=== PATIENT | male | born 1970 | race Caucasian/White ===

== ENCOUNTER 2019-02-18 22:33 | Inpatient (IN) | payer BC, MEDICAID ==
[2019-02-18] MEDS ORDERED: Aspirin 81 MG Tab.Chew PO ONE (22:40)
[2019-02-18] MEDS ORDERED: Sodium Chloride 0.9% 10 ML Syringe FLUSH PRN (22:41)
[2019-02-18] MEDS ORDERED: Lactated Ringers 1,000 ML IV ONE ×2 (22:45→23:42)
[2019-02-18] MEDS ORDERED: Acetaminophen 500 MG Tab PO ONE (22:46)
--- NOTE | 2019-02-18 22:54 | EDM.PDOC ---
ED HPI GENERAL MEDICAL PROBLEM - General Chief Complaint: Chest Pain Stated Complaint: SOB CHEST PAINS Time Seen by Provider: 02/18/19 22:35 Source of Information: Reports: Patient, Old Records, RN History Limitations: Reports: No Limitations - History of Present Illness INITIAL COMMENTS - FREE TEXT/NARRATIVE: 48 yo male developed mild chest pain about 4-5 hrs ago that has progressed. He decided to come to the ER when he developed chills. He no longer has the chills. Has not taken anything for his temp. He denies SCHULER, sore throat, cough, dysuria, or skin rash. Has chronic abdominal pain. Onset: Today Onset Date: 02/18/19 Onset Time: 17:30 Duration: Hour(s):, Getting Worse Location: Reports: Chest Quality: Reports: Ache Severity: Moderate Improves with: Reports: None Worsens with: Reports: Other (time) Context: Reports: Other (see HPI) Associated Symptoms: Reports: Chest Pain, Fever/Chills. 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) (none) chest pain Pain Score (Numeric/FACES): 7 - Related Data Allergies Allergy/AdvReac Type Severity Reaction Status Date / Time pantoprazole [From Protonix] Allergy Nausea and Verified 02/18/19 22:44 Vomiting Sea Food Allergy Anaphylactic Uncoded 02/18/19 22:44 Shock Home Meds: Home Meds Albuterol [Proventil Neb Soln] 2.5 dose INH Q4HR PRN 07/31/16 [History] Diphenoxylate HCl/Atropine [Diphenoxylate-Atrop 2.5-0.025] 1 each PO Q8H PRN 03/09 [History] Enalapril [Vasotec] 5 mg PO DAILY 07/31/16 [History] Lansoprazole [Prevacid] 30 mg PO DAILY 07/31/16 [History] Ondansetron [Zofran] 4 mg PO Q8H PRN 07/31/16 [History] Testosterone Enanthate 200 mg IM DAILY 07/31/16 [History] Warfarin [Coumadin] 9 mg PO DAILY 07/31/16 [History] busPIRone [Buspar] 5 mg PO TID 07/31/16 [History] Past Medical History Cardiovascular History: Reports: Hypertension Respiratory History: Reports: Asthma, Other (See Below) Other Respiratory History: mild asthma Gastrointestinal History: Reports: GI Bleed Musculoskeletal History: Reports: Fracture, Other (See Below) Other Musculoskeletal History: ankle Hematologic History: Reports: Anticoagulation Therapy, Blood Transfusion(s), Other (See Below) Other Hematologic History: Factor Five liden - Infectious Disease History Infectious Disease History: Reports: Chicken Pox - Past Surgical History GI Surgical History: Reports: Colostomy, Other (See Below) Social & Family History - Caffeine Use Caffeine Use: Reports: Soda ED ROS GENERAL - Review of Systems Review Of Systems: See Below Constitutional: Reports: Fever, Chills HEENT: Reports: No Symptoms Respiratory: Reports: No Symptoms Cardiovascular: Reports: Chest Pain Endocrine: Reports: No Symptoms GI/Abdominal: Reports: No Symptoms : Reports: No Symptoms Musculoskeletal: Reports: No Symptoms Skin: Reports: No Symptoms Neurological: Reports: No Symptoms Psychiatric: Reports: No Symptoms ED EXAM, GENERAL - Physical Exam Exam: See Below Exam Limited By: No Limitations General Appearance: Alert, WD/WN, Mild Distress, Obese Eye Exam: Bilateral Eye: Normal Inspection Ears: Normal External Exam, Normal Canal, Hearing Grossly Normal, Normal TMs Ear Exam: Bilateral Ear: Auricle Normal, Canal Normal, TM normal Nose: Normal Inspection, No Blood Throat/Mouth: Normal Inspection, Normal Lips, Normal Oropharynx, Normal Voice, No Airway Compromise Head: Atraumatic, Normocephalic Neck: Normal Inspection, Supple, Non-Tender. No: Lymphadenopathy (R), Lymphadenopathy (L) Respiratory/Chest: No Respiratory Distress, Lungs Clear, Normal Breath Sounds, No Accessory Muscle Use Cardiovascular: Regular Rate, Rhythm, No Edema GI/Abdominal: Normal Bowel Sounds, Soft, No Distention, Tender (diffusely, surgical scars present). No: Non-Tender, Distended, Guarding, Rigid, Rebound Extremities: Normal Inspection, Normal Range of Motion, Non-Tender, No Pedal Edema Neurological: Alert, Oriented, CN II-XII Intact, Normal Cognition, No Motor/ Sensory Deficits Psychiatric: Normal Affect, Normal Mood Skin Exam: Warm, Dry, Intact, No Rash, Erythema (of some of the skin of the upper abdomen. Warm to touch.) EKG INTERPRETATION EKG Date: 02/18/19 Time: 22:35 Rhythm: NSR Rate (Beats/Min): 129 [place]: Normal P-Wave: Present QRS: Normal ST-T: Normal QT: Normal Comparison: NA - No Prior EKG Course - Vital Signs Text/Narrative:: Dr. Paul called @ [id number] Last Recorded V/S: Last Vital Signs Temp 38.9 C H 02/18/19 23:07 Pulse 110 H 02/18/19 23:07 Resp 23 H 02/18/19 23:07 BP 138/70 02/18/19 23:07 Pulse Ox 98 02/18/19 23:07 - Orders/Labs/Meds Orders: Active Orders 24 hr Category Date Time Status Bladder Scan [RC] ASDIRECTED Care 02/18/19 23:28 Active Cardiac Monitoring [RC] .As Directed Care 02/18/19 22:35 Active EKG Documentation Completion [RC] ASDIRECTED Care 02/18/19 22:35 Active CULTURE BLOOD [BC] Stat Lab 02/18/19 22:55 Received CULTURE BLOOD [BC] Stat Lab 02/18/19 23:00 Received UA W/MICROSCOPIC [URIN] Stat Lab 02/18/19 23:45 Ordered Lactated Ringers [Ringers, Lactated] 1,000 ml Med 02/18/19 23:42 Active IV BOLUS Sodium Chloride 0.9% [Saline Flush] Med 02/18/19 22:41 Active 10 ml FLUSH ASDIRECTED PRN Vancomycin 1.25 gm Med 02/18/19 23:48 Active Sodium Chloride 0.9% [Normal Saline] 250 ml IV NOW Saline Lock Insert [OM.PC] Routine Oth 02/18/19 22:41 Ordered EKG 12 Lead [EK] Routine Ther 02/18/19 22:34 Ordered Medication Orders Lactated Ringer's (Ringers, Lactated) 1,000 mls @ 1,000 mls/hr IV BOLUS ONE Stop: 02/19/19 00:41 Vancomycin HCl 1.25 gm/ Sodium (Chloride) 250 mls @ 150 mls/hr IV NOW STA Stop: 02/19/19 01:27 Sodium Chloride (Saline Flush) 10 ml FLUSH ASDIRECTED PRN PRN Reason: Keep Vein Open Last Admin: 02/18/19 23:06 Dose: 10 ml Labs: Laboratory Tests 02/18/19 02/18/19 02/18/19 Range/Units 22:45 22:45 22:45 WBC 15.7 H (4.5-11.0) K/uL RBC 5.61 (4.30-5.90) M/uL Hgb 16.6 H (12.0-15.0) g/dL Hct 51.0 (40.0-54.0) % MCV 91 (80-98) fL MCH 30 (27-31) pg MCHC 33 (32-36) % Plt Count 229 (150-400) K/uL PT 23.8 H (9.5-12.0) sec INR 2.31 H (0.80-1.20) Sodium 138 L (140-148) mmol/L Potassium 3.7 (3.6-5.2) mmol/L Chloride 100 (100-108) mmol/L Carbon Dioxide 25 (21-32) mmol/L Anion Gap 16.7 H (5.0-14.0) mmol/L BUN 10 (7-18) mg/dL Creatinine 1.1 (0.8-1.3) mg/dL Est Cr Clr Drug Dosing 91.80 mL/min Estimated GFR (MDRD) > 60 (>60) Glucose 127 H (74-106) mg/dL Lactic Acid (0.4-2.0) mmol/L Calcium 9.8 (8.5-10.1) mg/dL Troponin I < 0.017 (0.000-0.056) ng/mL 02/18/19 Range/Units 22:55 WBC (4.5-11.0) K/uL RBC (4.30-5.90) M/uL Hgb (12.0-15.0) g/dL Hct (40.0-54.0) % MCV (80-98) fL MCH (27-31) pg MCHC (32-36) % Plt Count (150-400) K/uL PT (9.5-12.0) sec INR (0.80-1.20) Sodium (140-148) mmol/L Potassium (3.6-5.2) mmol/L Chloride (100-108) mmol/L Carbon Dioxide (21-32) mmol/L Anion Gap (5.0-14.0) mmol/L BUN (7-18) mg/dL Creatinine (0.8-1.3) mg/dL Est Cr Clr Drug Dosing mL/min Estimated GFR (MDRD) (>60) Glucose (74-106) mg/dL Lactic Acid 3.5 H (0.4-2.0) mmol/L Calcium (8.5-10.1) mg/dL Troponin I (0.000-0.056) ng/mL Meds: Medications Generic Name Dose Route Start Last Admin Trade Name Freq PRN Reason Stop Dose Admin Lactated Ringer's 1,000 mls @ 1,000 mls/hr 02/18/19 23:42 Ringers, Lactated IV 02/19/19 00:41 BOLUS ONE Vancomycin HCl 1.25 gm/ Sodium 250 mls @ 150 mls/hr 02/18/19 23:48 Chloride IV 02/19/19 01:27 NOW STA Sodium Chloride 10 ml 02/18/19 22:41 02/18/19 23:06 Saline Flush FLUSH 10 ml ASDIRECTED PRN Administration Keep Vein Open Discontinued Medications Generic Name Dose Route Start Last Admin Trade Name Freq PRN Reason Stop Dose Admin Acetaminophen 1,000 mg 02/18/19 22:46 02/18/19 22:56 Tylenol Extra Strength PO 02/18/19 22:47 1,000 mg ONETIME ONE Administration Aspirin 324 mg 02/18/19 22:40 02/18/19 22:55 Aspirin PO 02/18/19 22:41 324 mg ONETIME ONE Administration Lactated Ringer's 1,000 mls @ 1,000 mls/hr 02/18/19 22:45 02/18/19 23:06 Ringers, Lactated IV 02/18/19 23:44 1,000 mls/hr BOLUS ONE Administration - Radiology Interpretation Free Text/Narrative:: CXR-neg Departure - Departure Time of Disposition: 00:00 Disposition: Admitted As Inpatient 65 Clinical Impression: Cellulitis of abdominal wall Sepsis Qualifiers: Sepsis type: sepsis due to unspecified organism Qualified Code(s): A41.9 - Sepsis, unspecified organism Referrals: PCP,None [Primary Care Provider] - Forms: ED Department Discharge - My Orders Last 24 Hours: My Active Orders 02/18/19 22:34 EKG 12 Lead [EK] Routine 02/18/19 22:35 Cardiac Monitoring [RC] .As Directed EKG Documentation Completion [RC] ASDIRECTED 02/18/19 22:41 Sodium Chloride 0.9% [Saline Flush] 10 ml FLUSH ASDIRECTED PRN Saline Lock Insert [OM.PC] Routine 02/18/19 22:55 CULTURE BLOOD [BC] Stat 02/18/19 23:00 CULTURE BLOOD [BC] Stat 02/18/19 23:28 Bladder Scan [RC] ASDIRECTED 02/18/19 23:42 Lactated Ringers [Ringers, Lactated] 1,000 ml IV BOLUS 02/18/19 23:45 UA W/MICROSCOPIC [URIN] Stat 02/18/19 23:48 Vancomycin 1.25 gm Sodium Chloride 0.9% [Normal Saline] 250 ml IV NOW - Assessment/Plan Last 24 Hours: My Active Orders 02/18/19 22:34 EKG 12 Lead [EK] Routine 02/18/19 22:35 Cardiac Monitoring [RC] .As Directed EKG Documentation Completion [RC] ASDIRECTED 02/18/19 22:41 Sodium Chloride 0.9% [Saline Flush] 10 ml FLUSH ASDIRECTED PRN Saline Lock Insert [OM.PC] Routine 02/18/19 22:55 CULTURE BLOOD [BC] Stat 02/18/19 23:00 CULTURE BLOOD [BC] Stat 02/18/19 23:28 Bladder Scan [RC] ASDIRECTED 02/18/19 23:42 Lactated Ringers [Ringers, Lactated] 1,000 ml IV BOLUS 02/18/19 23:45 UA W/MICROSCOPIC [URIN] Stat 02/18/19 23:48 Vancomycin 1.25 gm Sodium Chloride 0.9% [Normal Saline] 250 ml IV NOW
--- NOTE | 2019-02-18 23:28 | CRLCR ---
INDICATION: Chest pain fever TECHNIQUE: Chest radiograph 1 view COMPARISON: None FINDINGS: Moderate degradation of image quality noted due to body habitus. Mediastinum: The mediastinum is normal in appearance. The heart silhouette is normal in size and morphology. Lung: Both lungs are unremarkable in appearance. No sign of pleural effusion seen. No pneumothorax is identified. IMPRESSION: 1. No acute cardiopulmonary disease is seen. Dictated by: Patricio Enriquez MD @ 02/18/2019 23:26:35 (Electronically Signed)
[2019-02-19] MEDS ORDERED: Ondansetron 4 MG/2 ML SDV IV PRN (00:29)
[2019-02-19] MEDS ORDERED: Albuterol 0.083% 2.5 MG/3 ML Neb Soln NEB PRN (00:29)
--- NOTE | 2019-02-19 00:29 | PCM.HP ---
H&P History of Present Illness - General Date of Service: 02/19/19 Admit Problem/Dx: 48-year-old male with past medical history of testosterone deficiency, factor V Leiden deficiency on, Coumadin, came to the ED with a complaining of epigastric chest pain started since last 6 hours which is gradually progressing. Patient had 2 episodes of vomiting associated with fever and chills. Patient denies any exertional chest pain. Patient denies any previous history of CAD. In the ED patient lab results showed a WBC count is elevated and the lactic acid is 3.5. Patient has maculopapular skin rash present on the anterior surface of the abdominal wall. Patient was diagnosed with sepsis and received vancomycin medication. Patient is a full code. Other review of systems are not significant. chest pain Pain Score (Numeric/FACES): 7 Abdominal Pain Score (Numeric/FACES): 6 - Related Data Allergies/Adverse Reactions: Allergies Allergy/AdvReac Type Severity Reaction Status Date / Time pantoprazole [From Protonix] Allergy Nausea and Verified 02/18/19 22:44 Vomiting Sea Food Allergy Severe Anaphylactic Uncoded 02/19/19 08:43 Shock Home Medications: Home Meds Albuterol [Proventil Neb Soln] 2.5 dose INH Q4HR PRN 07/31/16 [History] Diphenoxylate HCl/Atropine [Diphenoxylate-Atrop 2.5-0.025] 1 each PO Q8H PRN 03/09 [History] Enalapril [Vasotec] 5 mg PO DAILY 07/31/16 [History] Lansoprazole [Prevacid] 30 mg PO DAILY 07/31/16 [History] Ondansetron [Zofran] 4 mg PO Q8H PRN 07/31/16 [History] Testosterone Enanthate 200 mg IM DAILY 07/31/16 [History] Warfarin [Coumadin] 8 mg PO DAILY 07/31/16 [History] busPIRone [Buspar] 5 mg PO TID 07/31/16 [History] Dicyclomine HCl [Bentyl] 10 mg PO TID PRN 02/19/19 [History] Sertraline HCl 50 mg PO DAILY 02/19/19 [History] Past Medical History HEENT History: Reports: Hard of Hearing, Impaired Vision Cardiovascular History: Reports: Hypertension Respiratory History: Reports: Asthma, Other (See Below) Other Respiratory History: mild asthma Gastrointestinal History: Reports: GI Bleed Musculoskeletal History: Reports: Fracture, Other (See Below) Other Musculoskeletal History: ankle Psychiatric History: Reports: Anxiety, Depression Hematologic History: Reports: Anticoagulation Therapy, Blood Transfusion(s), Other (See Below) Other Hematologic History: Factor Five liden - Infectious Disease History Infectious Disease History: Reports: Chicken Pox - Past Surgical History GI Surgical History: Reports: Colostomy, Other (See Below) Social & Family History - Family History Family Medical History: Noncontributory - Tobacco Use Smoking Status *Q: Never Smoker - Caffeine Use Caffeine Use: Reports: Soda - Recreational Drug Use Recreational Drug Use: No H&P Review of Systems - Review of Systems: Review Of Systems: See Below General: Reports: Fever, Chills, Malaise, Weakness, Fatigue, Night Sweats, Diaphoresis, Decreased Appetite. Denies: Weight Loss, Weight Gain HEENT: Denies: Contact Lenses, Dysphasia Pulmonary: Reports: Shortness of Breath. Denies: Wheezing, Pleuritic Chest Pain , Cough, Sputum Cardiovascular: Reports: Chest Pain. Denies: Palpitations, Dyspnea on Exertion , Orthopnea, PND, Edema, Lightheadedness, Syncope, Claudication Gastrointestinal: Reports: Abdominal Pain, Anorexia. Denies: Black Stool, Bloody Stool, Constipation, Diarrhea Genitourinary: Denies: Dysuria, Frequency Musculoskeletal: Denies: Neck Pain, Shoulder Pain Skin: Denies: Cyanosis, Jaundice Psychiatric: Denies: Confusion, Depression Neurological: Denies: Confusion, Dizziness Hematologic/Lymphatic: Denies: Anemia, Easy Bleeding Exam - Exam Exam: See Below - Vital Signs Vital Signs: Last Vital Signs Temp 38.9 C H 02/18/19 23:07 Pulse 110 H 02/18/19 23:07 Resp 23 H 02/18/19 23:07 BP 138/70 02/18/19 23:07 Pulse Ox 98 02/18/19 23:07 Weight: 129.727 kg - Exam General: Alert, Oriented Neck: Supple, Trachea Midline Lungs: Clear to Auscultation, Normal Respiratory Effort Cardiovascular: Regular Rate, Regular Rhythm GI/Abdominal Exam: Normal Bowel Sounds, Soft, Non-Tender, No Organomegaly, No Distention, No Abnormal Bruit, No Mass, Other (Patient has maculopapular skin rash on anterior surface of the abdominal wall, tenderness is positive) Extremities: Normal Inspection, Normal Range of Motion, Non-Tender, No Pedal Edema - Patient Data Lab Results Last 24 hrs: Laboratory Results - last 24 hr 02/18/19 02/18/19 02/18/19 Range/Units 22:45 22:45 22:45 WBC 15.7 H (4.5-11.0) K/uL RBC 5.61 (4.30-5.90) M/uL Hgb 16.6 H (12.0-15.0) g/dL Hct 51.0 (40.0-54.0) % MCV 91 (80-98) fL MCH 30 (27-31) pg MCHC 33 (32-36) % Plt Count 229 (150-400) K/uL PT 23.8 H (9.5-12.0) sec INR 2.31 H (0.80-1.20) Sodium 138 L (140-148) mmol/L Potassium 3.7 (3.6-5.2) mmol/L Chloride 100 (100-108) mmol/L Carbon Dioxide 25 (21-32) mmol/L Anion Gap 16.7 H (5.0-14.0) mmol/L BUN 10 (7-18) mg/dL Creatinine 1.1 (0.8-1.3) mg/dL Est Cr Clr Drug Dosing 91.80 mL/min Estimated GFR (MDRD) > 60 (>60) Glucose 127 H (74-106) mg/dL Lactic Acid (0.4-2.0) mmol/L Calcium 9.8 (8.5-10.1) mg/dL Troponin I < 0.017 (0.000-0.056) ng/mL Urine Color Urine Appearance Urine pH (4.5-8.0) Ur Specific [place] (1.008-1.030) Urine Protein (NEGATIVE) mg/dL Urine Glucose (UA) (NEGATIVE) mg/dL Urine Ketones (NEGATIVE) mg/dL Urine Occult Blood (NEGATIVE) Urine Nitrite (NEGAITVE) Urine Bilirubin (NEGATIVE) Urine Urobilinogen (NORMAL) mg/dL Ur Leukocyte Esterase (NEGATIVE) Urine RBC (0-5) Urine WBC (0-5) Ur Epithelial Cells Amorphous Sediment Urine Bacteria Urine Mucus 02/18/19 02/18/19 Range/Units 22:55 23:45 WBC (4.5-11.0) K/uL RBC (4.30-5.90) M/uL Hgb (12.0-15.0) g/dL Hct (40.0-54.0) % MCV (80-98) fL MCH (27-31) pg MCHC (32-36) % Plt Count (150-400) K/uL PT (9.5-12.0) sec INR (0.80-1.20) Sodium (140-148) mmol/L Potassium (3.6-5.2) mmol/L Chloride (100-108) mmol/L Carbon Dioxide (21-32) mmol/L Anion Gap (5.0-14.0) mmol/L BUN (7-18) mg/dL Creatinine (0.8-1.3) mg/dL Est Cr Clr Drug Dosing mL/min Estimated GFR (MDRD) (>60) Glucose (74-106) mg/dL Lactic Acid 3.5 H (0.4-2.0) mmol/L Calcium (8.5-10.1) mg/dL Troponin I (0.000-0.056) ng/mL Urine Color Yellow Urine Appearance Slightly cloudy Urine pH 8.0 (4.5-8.0) Ur Specific [place] 1.005 L (1.008-1.030) Urine Protein Negative (NEGATIVE) mg/dL Urine Glucose (UA) Normal (NEGATIVE) mg/dL Urine Ketones Negative (NEGATIVE) mg/dL Urine Occult Blood Negative (NEGATIVE) Urine Nitrite Negative (NEGAITVE) Urine Bilirubin Negative (NEGATIVE) Urine Urobilinogen Normal (NORMAL) mg/dL Ur Leukocyte Esterase Negative (NEGATIVE) Urine RBC 0-5 (0-5) Urine WBC 0-5 (0-5) Ur Epithelial Cells Few Amorphous Sediment Few Urine Bacteria Few Urine Mucus Not seen Result Diagrams: 02/19/19 05:05 02/19/19 05:05 - Problem List (1) Factor V deficiency SNOMED Code(s): 0674966 ICD Code: D68.2 - HEREDITARY DEFICIENCY OF OTHER CLOTTING FACTORS Status: Acute Current Visit: Yes (2) Cellulitis of abdominal wall SNOMED Code(s): 90446621 ICD Code: L03.311 - CELLULITIS OF ABDOMINAL WALL Status: Acute Current Visit: Yes (3) Sepsis SNOMED Code(s): 07319775 ICD Code: A41.9 - SEPSIS, UNSPECIFIED ORGANISM Status: Acute Current Visit: Yes Qualifiers: Sepsis type: sepsis due to unspecified organism Qualified Code(s): A41.9 - Sepsis, unspecified organism (4) Crushing injury of finger of left hand SNOMED Code(s): 39219239 ICD Code: S67.22XA - CRUSHING INJURY OF LEFT HAND, INITIAL ENCOUNTER Status : Acute Current Visit: No (5) Subungual hematoma of finger SNOMED Code(s): 446072496 ICD Code: S60.10XA - CONTUSION OF UNSP FINGER WITH DAMAGE TO NAIL, INIT ENCNTR Status: Acute Current Visit: No Qualifiers: Encounter type: initial encounter Qualified Code(s): S60.10XA - Contusion of unspecified finger with damage to nail, initial encounter (6) Testosterone deficiency SNOMED Code(s): 2196871126144 ICD Code: E34.9 - ENDOCRINE DISORDER, UNSPECIFIED Status: Acute Current Visit: Yes Problem List Initiated/Reviewed/Updated: Yes Orders Last 24hrs: Active Orders 24 hr Category Date Time Status Bladder Scan [RC] ASDIRECTED Care 02/18/19 23:28 Active Cardiac Monitoring [RC] .As Directed Care 02/18/19 22:35 Active EKG Documentation Completion [RC] ASDIRECTED Care 02/18/19 22:35 Active CULTURE BLOOD [BC] Stat Lab 02/18/19 22:55 Received CULTURE BLOOD [BC] Stat Lab 02/18/19 23:00 Received Lactated Ringers [Ringers, Lactated] 1,000 ml Med 02/18/19 23:42 Active IV BOLUS Sodium Chloride 0.9% [Saline Flush] Med 02/18/19 22:41 Active 10 ml FLUSH ASDIRECTED PRN Vancomycin 1.25 gm Med 02/18/19 23:48 Active Sodium Chloride 0.9% [Normal Saline] 250 ml IV NOW Saline Lock Insert [OM.PC] Routine Oth 02/18/19 22:41 Ordered EKG 12 Lead [EK] Routine Ther 02/18/19 22:34 Ordered Medication Orders Lactated Ringer's (Ringers, Lactated) 1,000 mls @ 1,000 mls/hr IV BOLUS ONE Stop: 02/19/19 00:41 Last Admin: 02/19/19 00:09 Dose: 1,000 mls/hr Vancomycin HCl 1.25 gm/ Sodium (Chloride) 250 mls @ 150 mls/hr IV NOW STA Stop: 02/19/19 01:27 Last Admin: 02/19/19 00:10 Dose: 150 mls/hr Sodium Chloride (Saline Flush) 10 ml FLUSH ASDIRECTED PRN PRN Reason: Keep Vein Open Last Admin: 02/18/19 23:06 Dose: 10 ml Assessment/Plan Comment:: 48-year-old male with past medical history of factor V Leiden deficiency on Coumadin medication, testosterone deficiency came to the ED with a concerns of epigastric chest pain, skin rash and diagnosed with cellulitis and admitted into the hospital in observational status Patient WBC count is elevated, lactic acid is 3.5 Will add Zosyn medication along with vancomycin Ordered blood cultures Received 2 L of IV fluids bolus We will place him on normal saline 175 mL/h maintenance IV fluids CBC, CMP tomorrow We will repeat lactic acid in 4 hours Tapia catheter not indicated IV fluids 175 mL/h normal saline Diet regular diet DVT prophylaxis Coumadin, home dose Observational status
[2019-02-19] MEDS ORDERED: Acetaminophen 325 MG Tab PO PRN (00:36)
[2019-02-19] MEDS ORDERED: Sodium Chloride 0.9% 1,000 ML IV SCH (00:45)
[2019-02-19] MEDS ORDERED: Warfarin 5 MG Tab PO ONE (01:34)
[2019-02-19] MEDS: Piperacillin/Tazobactam 3.375 GM in Sodium Chloride 0.9% 50 ML IV SCH ×2 (02:04→07:56)
[2019-02-19] MEDS: Acetaminophen/HYDROcodone 325-5 MG Tab PO PRN ×2 (03:55→15:35)
[2019-02-19] MEDS ORDERED: Piperacillin/Tazobactam/Dext 3.375 GM in Premix Bag 1 BAG IV SCH (08:00)
[2019-02-19] MEDS ORDERED: DICYCLOMINE HCL 10 MG PO PRN (08:37)
[2019-02-19] MEDS ORDERED: Dicyclomine 10 MG Cap PO PRN (08:41)
[2019-02-19] MEDS ORDERED: TESTOSTERONE ENANTHATE 200 MG IM SCH (09:00)
[2019-02-19] MEDS ORDERED: SERTRALINE HCL 50 MG PO SCH (09:00)
[2019-02-19] MEDS ORDERED: BUSPIRONE 5 MG PO SCH (09:00)
[2019-02-19] MEDS ORDERED: Non-Formulary Medication 1 Each (Lansoprazole [Prevacid] 30 MG) PO SCH (09:00)
--- NOTE | 2019-02-19 10:42 | PCM.PN ---
- General Info Date of Service: 02/19/19 Subjective Update: no acute events overnight following admission. Patient was febrile on arrival but temperatures have normalized. Abdominal pain has improved with antibiotic therapy. Lactic acid level has normalized with hydration. Blood pressure remained stable in the normal range. White blood cell count is slightly better. Strength seems to be improving. Cultures are negative so far. Functional Status: Reports: Pain Controlled, Tolerating Diet - Review of Systems General: Reports: Fever Gastrointestinal: Reports: Abdominal Pain - Patient Data Vitals - Most Recent: Last Vital Signs Temp 37.9 C 02/19/19 07:00 Pulse 94 02/19/19 07:00 Resp 19 02/19/19 07:00 BP 107/56 L 02/19/19 07:00 Pulse Ox 92 L 02/19/19 07:00 Weight - Most Recent: 135 kg Lab Results Last 24 Hours: Laboratory Results - last 24 hr 02/18/19 02/18/19 02/18/19 Range/Units 22:45 22:45 22:45 WBC 15.7 H (4.5-11.0) K/uL RBC 5.61 (4.30-5.90) M/uL Hgb 16.6 H (12.0-15.0) g/dL Hct 51.0 (40.0-54.0) % MCV 91 (80-98) fL MCH 30 (27-31) pg MCHC 33 (32-36) % Plt Count 229 (150-400) K/uL Neut % (Auto) (36-66) % Lymph % (Auto) (24-44) % [place] % (Auto) (2-6) % Eos % (Auto) (2-4) % Baso % (Auto) (0-1) % PT 23.8 H (9.5-12.0) sec INR 2.31 H (0.80-1.20) Sodium 138 L (140-148) mmol/L Potassium 3.7 (3.6-5.2) mmol/L Chloride 100 (100-108) mmol/L Carbon Dioxide 25 (21-32) mmol/L Anion Gap 16.7 H (5.0-14.0) mmol/L BUN 10 (7-18) mg/dL Creatinine 1.1 (0.8-1.3) mg/dL Est Cr Clr Drug Dosing 91.80 mL/min Estimated GFR (MDRD) > 60 (>60) Glucose 127 H (74-106) mg/dL Lactic Acid (0.4-2.0) mmol/L Calcium 9.8 (8.5-10.1) mg/dL Troponin I < 0.017 (0.000-0.056) ng/mL Urine Color Urine Appearance Urine pH (4.5-8.0) Ur Specific [place] (1.008-1.030) Urine Protein (NEGATIVE) mg/dL Urine Glucose (UA) (NEGATIVE) mg/dL Urine Ketones (NEGATIVE) mg/dL Urine Occult Blood (NEGATIVE) Urine Nitrite (NEGAITVE) Urine Bilirubin (NEGATIVE) Urine Urobilinogen (NORMAL) mg/dL Ur Leukocyte Esterase (NEGATIVE) Urine RBC (0-5) Urine WBC (0-5) Ur Epithelial Cells Amorphous Sediment Urine Bacteria Urine Mucus 02/18/19 02/18/19 02/19/19 Range/Units 22:55 23:45 05:05 WBC 12.4 H (4.5-11.0) K/uL RBC 4.98 (4.30-5.90) M/uL Hgb 15.2 H (12.0-15.0) g/dL Hct 46.1 (40.0-54.0) % MCV 93 (80-98) fL MCH 31 (27-31) pg MCHC 33 (32-36) % Plt Count 165 (150-400) K/uL Neut % (Auto) 89 H (36-66) % Lymph % (Auto) 5 L (24-44) % [place] % (Auto) 6 (2-6) % Eos % (Auto) 0 L (2-4) % Baso % (Auto) 0 (0-1) % PT (9.5-12.0) sec INR (0.80-1.20) Sodium (140-148) mmol/L Potassium (3.6-5.2) mmol/L Chloride (100-108) mmol/L Carbon Dioxide (21-32) mmol/L Anion Gap (5.0-14.0) mmol/L BUN (7-18) mg/dL Creatinine (0.8-1.3) mg/dL Est Cr Clr Drug Dosing mL/min Estimated GFR (MDRD) (>60) Glucose (74-106) mg/dL Lactic Acid 3.5 H (0.4-2.0) mmol/L Calcium (8.5-10.1) mg/dL Troponin I (0.000-0.056) ng/mL Urine Color Yellow Urine Appearance Slightly cloudy Urine pH 8.0 (4.5-8.0) Ur Specific [place] 1.005 L (1.008-1.030) Urine Protein Negative (NEGATIVE) mg/dL Urine Glucose (UA) Normal (NEGATIVE) mg/dL Urine Ketones Negative (NEGATIVE) mg/dL Urine Occult Blood Negative (NEGATIVE) Urine Nitrite Negative (NEGAITVE) Urine Bilirubin Negative (NEGATIVE) Urine Urobilinogen Normal (NORMAL) mg/dL Ur Leukocyte Esterase Negative (NEGATIVE) Urine RBC 0-5 (0-5) Urine WBC 0-5 (0-5) Ur Epithelial Cells Few Amorphous Sediment Few Urine Bacteria Few Urine Mucus Not seen 02/19/19 02/19/19 02/19/19 Range/Units 05:05 05:05 05:05 WBC (4.5-11.0) K/uL RBC (4.30-5.90) M/uL Hgb (12.0-15.0) g/dL Hct (40.0-54.0) % MCV (80-98) fL MCH (27-31) pg MCHC (32-36) % Plt Count (150-400) K/uL Neut % (Auto) (36-66) % Lymph % (Auto) (24-44) % [place] % (Auto) (2-6) % Eos % (Auto) (2-4) % Baso % (Auto) (0-1) % PT 21.1 H (9.5-12.0) sec INR 2.03 H (0.80-1.20) Sodium 141 (140-148) mmol/L Potassium 4.0 (3.6-5.2) mmol/L Chloride 105 (100-108) mmol/L Carbon Dioxide 28 (21-32) mmol/L Anion Gap 8.0 (5.0-14.0) mmol/L BUN 8 (7-18) mg/dL Creatinine 1.1 (0.8-1.3) mg/dL Est Cr Clr Drug Dosing 91.80 mL/min Estimated GFR (MDRD) > 60 (>60) Glucose 99 (74-106) mg/dL Lactic Acid 1.2 (0.4-2.0) mmol/L Calcium 9.1 (8.5-10.1) mg/dL Troponin I (0.000-0.056) ng/mL Urine Color Urine Appearance Urine pH (4.5-8.0) Ur Specific [place] (1.008-1.030) Urine Protein (NEGATIVE) mg/dL Urine Glucose (UA) (NEGATIVE) mg/dL Urine Ketones (NEGATIVE) mg/dL Urine Occult Blood (NEGATIVE) Urine Nitrite (NEGAITVE) Urine Bilirubin (NEGATIVE) Urine Urobilinogen (NORMAL) mg/dL Ur Leukocyte Esterase (NEGATIVE) Urine RBC (0-5) Urine WBC (0-5) Ur Epithelial Cells Amorphous Sediment Urine Bacteria Urine Mucus Med Orders - Current: Current Medications Acetaminophen (Tylenol) 650 mg PO Q6H PRN PRN Reason: Fever Hydrocodone Bitart/Acetaminophen ([place] 325-5 Mg) 1 tab PO Q4H PRN PRN Reason: Pain (moderate 4-6) Last Admin: 02/19/19 03:55 Dose: 1 tab Albuterol (Proventil Neb Soln) 2.5 mg NEB Q4H PRN PRN Reason: Shortness Of Breath/wheezing Dicyclomine HCl (Bentyl) 10 mg PO TID PRN PRN Reason: IRRITABLE BOWEL Cefazolin Sodium/Dextrose 2 gm (/ Premix) 50 mls @ 100 mls/hr IV Q8H [facility] Sodium Chloride (Normal Saline) 1,000 mls @ 25 mls/hr IV ASDIRECTED [facility] Non-Formulary Medication (Buspirone [Buspar]) 5 mg PO TID [facility] Non-Formulary Medication (Lansoprazole [Prevacid]) 30 mg PO DAILY [facility] Non-Formulary Medication (Testosterone Enanthate [Testosterone Enanthate]) 200 mg IM DAILY [facility] Ondansetron HCl (Zofran) 4 mg IV Q4H PRN PRN Reason: Nausea/Vomiting Senna/Docusate Sodium (Senna Plus) 1 tab PO BID PRN PRN Reason: Constipation Sertraline HCl (Zoloft) 50 mg PO DAILY [facility] Sodium Chloride (Saline Flush) 10 ml FLUSH ASDIRECTED PRN PRN Reason: Keep Vein Open Last Admin: 02/18/19 23:06 Dose: 10 ml Warfarin Sodium (Coumadin) 5 mg PO DAILY@1300 [facility] Warfarin Sodium (Coumadin) 3 mg PO DAILY@1300 [facility] Discontinued Medications Acetaminophen (Tylenol Extra Strength) 1,000 mg PO ONETIME ONE Stop: 02/18/19 22:47 Last Admin: 02/18/19 22:56 Dose: 1,000 mg Aspirin (Aspirin) 324 mg PO ONETIME ONE Stop: 02/18/19 22:41 Last Admin: 02/18/19 22:55 Dose: 324 mg Lactated Ringer's (Ringers, Lactated) 1,000 mls @ 1,000 mls/hr IV BOLUS ONE Stop: 02/18/19 23:44 Last Admin: 02/18/19 23:06 Dose: 1,000 mls/hr Lactated Ringer's (Ringers, Lactated) 1,000 mls @ 1,000 mls/hr IV BOLUS ONE Stop: 02/19/19 00:41 Last Admin: 02/19/19 00:09 Dose: 1,000 mls/hr Vancomycin HCl 1.25 gm/ Sodium (Chloride) 250 mls @ 150 mls/hr IV NOW STA Stop: 02/19/19 01:27 Last Admin: 02/19/19 00:10 Dose: 150 mls/hr Sodium Chloride (Normal Saline) 1,000 mls @ 175 mls/hr IV ASDIRECTED [facility] Last Admin: 02/19/19 05:53 Dose: 175 mls/hr Piperacillin Sod/Tazobactam (Sod 3.375 gm/ Sodium Chloride) 50 mls @ 100 mls/ hr IV Q6H [facility] Last Admin: 02/19/19 07:56 Dose: Not Given Vancomycin HCl 1.5 gm/ Sodium (Chloride) 250 mls @ 150 mls/hr IV Q12H [facility] Last Admin: 02/19/19 01:36 Dose: Not Given Piperacillin/Tazobactam/ (Dextrose 3.375 gm/ Premix) 50 mls @ 100 mls/hr IV Q6H [facility] Last Admin: 02/19/19 08:47 Dose: 100 mls/hr Vancomycin HCl 1.75 gm/ Sodium (Chloride) 250 mls @ 150 mls/hr IV Q12H [facility] Warfarin Sodium (Coumadin) 5 mg PO ONETIME ONE Stop: 02/19/19 01:35 Last Admin: 02/19/19 02:04 Dose: 5 mg Warfarin Sodium (Coumadin) 3 mg PO NOW ONE Stop: 02/19/19 02:01 Last Admin: 02/19/19 02:05 Dose: 3 mg - Exam Quality Assessment: No: Supplemental Oxygen General: Alert, Oriented, Cooperative, No Acute Distress Lungs: Normal Respiratory Effort GI/Abdominal Exam: Soft, No Distention Extremities: No Pedal Edema Skin: Warm, Dry, Rash (erythema over middle of the abdomen. multiple old scars. No abscess. small abrasion upper mid abdomen ) Psy/Mental Status: Alert, Normal Affect - Problem List Review Problem List Initiated/Reviewed/Updated: Yes - My Orders Last 24 Hours: My Active Orders 02/19/19 08:41 Dicyclomine [Bentyl] 10 mg PO TID PRN 02/19/19 09:00 Lansoprazole [Prevacid] 30 mg PO DAILY Sertraline [Zoloft] 50 mg PO DAILY Testosterone Enanthate [Testosterone Enanthate] 200 mg IM DAILY busPIRone [Buspar] 5 mg PO TID 02/19/19 10:40 Up ad Ivy [RC] ASDIRECTED 02/19/19 11:00 Sodium Chloride 0.9% [Normal Saline] 1,000 ml IV ASDIRECTED 02/19/19 14:00 ceFAZolin [Ancef] 2 gm Premix Bag 1 bag IV Q8H 02/20/19 05:00 BASIC METABOLIC PANEL,BMP [CHEM] Timed CBC W/O DIFF,HEMOGRAM [HEME] Timed (1) INR,PT,PROTHROMBIN TIME [COAG] Timed - Plan Plan:: ASSESSMENT AND PLAN - Cellulitis of the abdominal wall with sepsis - sepsis has resolved with management during the emergency room visit and early part of the hospital stay. white blood cell count trending down. Cellulitis seems to be improving. Small area of abrasion on the upper abdomen likely the source for infection. -Transition antibiotics to cefazolin -IV fluids at to keep open -Pain control -Follow-up cultures History of factor V Leiden deficiency with multiple clots - INR is therapeutic. -Continue warfarin and daily INR Chronic abdominal pain - history of multiple abdominal surgeries with most recent about 2.5 years ago. Very low suspicion for underlying abscess based on examination and remote surgery. -Continue home medications Maintenance issues - - DVT prophylaxis - warfarin - GI prophylaxis - not indicated - Nutrition - regular diet - Tapia catheter - not indicated Disposition - I would anticipate discharge home after the hospital stay Agapito Dominguez M.D.
[2019-02-19] MEDS ORDERED: Warfarin 5 MG Tab PO SCH (13:00)
[2019-02-19] MEDS: Sertraline 50 MG Tab PO SCH (13:46)
[2019-02-19] MEDS: ceFAZolin 2 GM in Sodium Chloride 0.9% 50 ML IV SCH ×2 (13:46→21:30)
[2019-02-19] MEDS ORDERED: Non-Formulary Medication 1 Each (Ranitidine Hcl [Ranitidine] 150 MG) PO SCH (21:00)
[2019-02-19] MEDS: Sodium Chloride 0.9% 1,000 ML IV SCH (23:51)
[2019-02-20] MEDS: Acetaminophen/HYDROcodone 325-5 MG Tab PO PRN (03:33)
[2019-02-20] MEDS: ceFAZolin 2 GM in Sodium Chloride 0.9% 50 ML IV SCH (05:25)
[2019-02-20] MEDS: Sertraline 50 MG Tab PO SCH (08:15)
[2019-02-20] MEDS: busPIRone 5 MG Tab PO SCH (08:16)
[2019-02-20] MEDS: TESTOSTERONE 1.62% TOP SCH (08:16)
[2019-02-20] MEDS ORDERED: TESTOSTERONE TOP SCH (09:00)
--- NOTE | 2019-02-20 09:59 | PCM.PN ---
- General Info Date of Service: 02/20/19 Subjective Update: Overnight the patient had difficulty with increased abdominal pain in the area of the cellulitis. This was a burning pain. It did feel better after a pain pill and ice packs. Redness has increased. His abdomen is much more tender today compared to yesterday. His old surgical scars in the middle of the abdomen feel boggy and possibly fluctuant. He did not have any fevers. White blood cell count is a little better today. Blood cultures remain negative. - Review of Systems General: Denies: Fever Gastrointestinal: Reports: Abdominal Pain Skin: Reports: Rash - Patient Data Vitals - Most Recent: Last Vital Signs Temp 35.2 C 02/20/19 07:00 Pulse 81 02/20/19 07:00 Resp 16 02/20/19 07:00 BP 115/58 L 02/20/19 07:00 Pulse Ox 96 02/20/19 07:00 Weight - Most Recent: 129.727 kg I&O - Last 24 Hours: Intake & Output 02/19/19 02/20/19 02/20/19 22:59 06:59 14:59 Intake Total 400 1015 Balance 400 1015 Lab Results Last 24 Hours: Laboratory Results - last 24 hr 02/20/19 02/20/19 02/20/19 Range/Units 04:50 04:50 04:50 WBC 7.9 (4.5-11.0) K/uL RBC 4.83 (4.30-5.90) M/uL Hgb 14.5 (12.0-15.0) g/dL Hct 45.1 (40.0-54.0) % MCV 93 (80-98) fL MCH 30 (27-31) pg MCHC 32 (32-36) % Plt Count 145 L (150-400) K/uL PT 21.4 H (9.5-12.0) sec INR 2.06 H (0.80-1.20) Sodium 138 L (140-148) mmol/L Potassium 3.8 (3.6-5.2) mmol/L Chloride 104 (100-108) mmol/L Carbon Dioxide 26 (21-32) mmol/L Anion Gap 11.8 (5.0-14.0) mmol/L BUN 10 (7-18) mg/dL Creatinine 1.0 (0.8-1.3) mg/dL Est Cr Clr Drug Dosing 100.50 mL/min Estimated GFR (MDRD) > 60 (>60) Glucose 81 (74-106) mg/dL Calcium 8.9 (8.5-10.1) mg/dL [place] Results Last 24 Hours: Microbiology 02/18/19 23:00 Aerobic Blood Culture - Preliminary Blood - Arm, Right NO GROWTH AFTER 1 DAY Anaerobic Blood Culture - Preliminary NO GROWTH AFTER 1 DAY 02/18/19 22:55 Aerobic Blood Culture - Preliminary Blood - Arm, Right NO GROWTH AFTER 1 DAY Anaerobic Blood Culture - Preliminary NO GROWTH AFTER 1 DAY Med Orders - Current: Current Medications Acetaminophen (Tylenol) 650 mg PO Q6H PRN PRN Reason: Fever Hydrocodone Bitart/Acetaminophen ([place] 325-5 Mg) 1 tab PO Q4H PRN PRN Reason: Pain (moderate 4-6) Last Admin: 02/20/19 03:33 Dose: 1 tab Albuterol (Proventil Neb Soln) 2.5 mg NEB Q4H PRN PRN Reason: Shortness Of Breath/wheezing Buspirone HCl (Buspar) 5 mg PO DAILY [facility] Last Admin: 02/20/19 08:16 Dose: 5 mg Dicyclomine HCl (Bentyl) 10 mg PO TID PRN PRN Reason: IRRITABLE BOWEL Sodium Chloride (Normal Saline) 1,000 mls @ 25 mls/hr IV ASDIRECTED [facility] Last Admin: 02/19/19 23:51 Dose: 25 mls/hr Piperacillin Sod/Tazobactam (Sod 3.375 gm/ Sodium Chloride) 50 mls @ 100 mls/ hr IV Q6H [facility] Vancomycin HCl 1.75 gm/ Sodium (Chloride) 250 mls @ 150 mls/hr IV Q12H [facility] Ondansetron HCl (Zofran) 4 mg IV Q4H PRN PRN Reason: Nausea/Vomiting Testosterone 1.62% (Gel (Ptom)) 0 each TOP DAILY [facility] Last Admin: 02/20/19 08:16 Dose: 1 each Ranitidine HCl (Zantac) 150 mg PO BID [facility] Last Admin: 02/20/19 08:15 Dose: 150 mg Senna/Docusate Sodium (Senna Plus) 1 tab PO BID PRN PRN Reason: Constipation Sertraline HCl (Zoloft) 50 mg PO DAILY [facility] Last Admin: 02/20/19 08:15 Dose: 50 mg Sodium Chloride (Saline Flush) 10 ml FLUSH ASDIRECTED PRN PRN Reason: Keep Vein Open Last Admin: 02/18/19 23:06 Dose: 10 ml Warfarin Sodium (Coumadin) 5 mg PO DAILY@1300 [facility] Last Admin: 02/19/19 13:46 Dose: 5 mg Warfarin Sodium (Coumadin) 3 mg PO DAILY@1300 [facility] Last Admin: 02/19/19 13:46 Dose: 3 mg Discontinued Medications Acetaminophen (Tylenol Extra Strength) 1,000 mg PO ONETIME ONE Stop: 02/18/19 22:47 Last Admin: 02/18/19 22:56 Dose: 1,000 mg Aspirin (Aspirin) 324 mg PO ONETIME ONE Stop: 02/18/19 22:41 Last Admin: 02/18/19 22:55 Dose: 324 mg Lactated Ringer's (Ringers, Lactated) 1,000 mls @ 1,000 mls/hr IV BOLUS ONE Stop: 02/18/19 23:44 Last Admin: 02/18/19 23:06 Dose: 1,000 mls/hr Lactated Ringer's (Ringers, Lactated) 1,000 mls @ 1,000 mls/hr IV BOLUS ONE Stop: 02/19/19 00:41 Last Admin: 02/19/19 00:09 Dose: 1,000 mls/hr Vancomycin HCl 1.25 gm/ Sodium (Chloride) 250 mls @ 150 mls/hr IV NOW STA Stop: 02/19/19 01:27 Last Admin: 02/19/19 00:10 Dose: 150 mls/hr Sodium Chloride (Normal Saline) 1,000 mls @ 175 mls/hr IV ASDIRECTED [facility] Last Admin: 02/19/19 05:53 Dose: 175 mls/hr Piperacillin Sod/Tazobactam (Sod 3.375 gm/ Sodium Chloride) 50 mls @ 100 mls/ hr IV Q6H [facility] Last Admin: 02/19/19 07:56 Dose: Not Given Vancomycin HCl 1.5 gm/ Sodium (Chloride) 250 mls @ 150 mls/hr IV Q12H [facility] Last Admin: 02/19/19 01:36 Dose: Not Given Piperacillin/Tazobactam/ (Dextrose 3.375 gm/ Premix) 50 mls @ 100 mls/hr IV Q6H [facility] Last Admin: 02/19/19 08:47 Dose: 100 mls/hr Vancomycin HCl 1.75 gm/ Sodium (Chloride) 250 mls @ 150 mls/hr IV Q12H [facility] Cefazolin Sodium 2 gm/ Sodium (Chloride) 50 mls @ 100 mls/hr IV Q8H [facility] Last Admin: 02/20/19 05:25 Dose: 100 mls/hr Non-Formulary Medication (Lansoprazole [Prevacid]) 30 mg PO DAILY [facility] Last Admin: 02/19/19 15:43 Dose: Not Given Warfarin Sodium (Coumadin) 5 mg PO ONETIME ONE Stop: 02/19/19 01:35 Last Admin: 02/19/19 02:04 Dose: 5 mg Warfarin Sodium (Coumadin) 3 mg PO NOW ONE Stop: 02/19/19 02:01 Last Admin: 02/19/19 02:05 Dose: 3 mg - Exam Quality Assessment: No: Supplemental Oxygen General: Alert, Oriented, Cooperative, No Acute Distress Lungs: Normal Respiratory Effort Cardiovascular: Regular Rate, Regular Rhythm GI/Abdominal Exam: Soft, No Distention Skin: Rash (erythema of midabdomen with boggy midline abdominal scars. Scars are quite tender to touch and there appears to be some fluctuance ) - Problem List Review Problem List Initiated/Reviewed/Updated: Yes - My Orders Last 24 Hours: My Active Orders 02/19/19 09:00 Sertraline [Zoloft] 50 mg PO DAILY 02/19/19 10:40 Up ad Ivy [RC] ASDIRECTED 02/19/19 11:00 Sodium Chloride 0.9% [Normal Saline] 1,000 ml IV ASDIRECTED 02/19/19 13:43 [place] Discontinue [Cardiac Monitoring Discontinue] [RC] Click to Edit 02/19/19 21:00 Ranitidine [Zantac] 150 mg PO BID 02/20/19 09:00 Patient's Own Medication [Ptom] 0 each TOP DAILY busPIRone [Buspar] 5 mg PO DAILY 02/20/19 09:51 Abdomen Pelvis w Cont [CT] Routine 02/20/19 10:00 Piperacillin/Tazobactam [Zosyn] 3.375 gm Sodium Chloride 0.9% [Normal Saline] 50 ml IV Q6H Vancomycin 1.75 gm Sodium Chloride 0.9% [Normal Saline] 250 ml IV Q12H 02/21/19 05:00 BASIC METABOLIC PANEL,BMP [CHEM] Timed CBC W/O DIFF,HEMOGRAM [HEME] Timed (1) INR,PT,PROTHROMBIN TIME [COAG] Timed - Plan Plan:: ASSESSMENT AND PLAN - Cellulitis of the abdominal wall with sepsis - sepsis resolved fairly quickly. Patient did have increasing redness and pain overnight. There was concern for underlying abscess or possibly infected mesh. CT scan of the abdomen and pelvis was obtained and did not show any evidence for obvious underlying abscess. Surgical consultation will be obtained. -Change antibiotics to vancomycin and Pip/Tazo -Surgical consultation -IV fluids -Pain control -Follow-up cultures History of factor V Leiden deficiency with multiple clots - INR is therapeutic. -Continue warfarin and daily INR Chronic abdominal pain - history of multiple abdominal surgeries with most recent about 2.5 years ago. -Continue home medications Maintenance issues - - DVT prophylaxis - warfarin - GI prophylaxis - not indicated - Nutrition - regular diet - Tapia catheter - not indicated Disposition - I would anticipate discharge home after the hospital stay Agapito Dominguez M.D.
[2019-02-20] MEDS ORDERED: Piperacillin/Tazobactam 3.375 GM in Sodium Chloride 0.9% 50 ML IV SCH (10:00)
[2019-02-20] MEDS ORDERED: Iopamidol 500 ML BOTTLE IV ONE (10:10)
[2019-02-20] MEDS ORDERED: Sodium Chloride 0.9% 10 ML Syringe FLUSH ONE (10:10)
[2019-02-20] MEDS ORDERED: Sodium Chloride 0.9% 80 ML IV SCH (10:15)
[2019-02-20] MEDS: Piperacillin/Tazobactam/Dext 3.375 GM in Premix Bag 1 BAG IV SCH ×3 (11:04→21:19)
--- NOTE | 2019-02-20 11:53 | CRLCT ---
INDICATION: Cellulitis and possible abscess. Question infected mesh. TECHNIQUE: CT abdomen and pelvis acquired with 150 cc Isovue IV contrast. COMPARISON: None FINDINGS: The liver, pancreas, kidneys, and left adrenal gland are negative. Calcification of the right adrenal gland may be due to prior infection or hemorrhage. Cholecystectomy. Spleen size is upper limits of normal. Hepatic and portal veins are patent. Postoperative changes of the colon with anastomoses in the sigmoid colon, midline anterior abdomen, and left lower abdomen. No bowel dilation. No intraperitoneal free air or fluid. There is a small right anterolateral abdominal wall hernia containing a nonobstructed loop of bowel. Prior ventral hernia repair with mesh. There is skin thickening about the umbilicus with mild surrounding fat stranding (series 2 image 100). This may represent cellulitis. No focal fluid collection. The bladder and prostate are unremarkable. Small fat containing left inguinal hernia. No lymphadenopathy. Mild degenerative changes of the spine. The lung bases are clear. IMPRESSION: 1. Abdominal wall skin thickening and mild subcutaneous fat stranding about the umbilicus may represent cellulitis. No focal fluid collection to suggest abscess. 2. Small right anterolateral abdominal wall hernia containing a nonobstructed loop of bowel. Please note that all CT scans at this facility use dose modulation, iterative reconstruction, and/or weight-based dosing when appropriate to reduce radiation dose to as low as reasonably achievable. Dictated by Regina Pizano MD @ Feb 20 2019 11:08AM Signed by Dr. Regina Pizano @ Feb 20 2019 11:51AM
[2019-02-20] MEDS: Sodium Chloride 0.9% 1,000 ML IV SCH ×3 (12:22→21:19)
[2019-02-21] MEDS: Piperacillin/Tazobactam/Dext 3.375 GM in Premix Bag 1 BAG IV SCH ×2 (04:20→09:02)
[2019-02-21] MEDS: diphenhydrAMINE 25 MG Cap PO PRN ×2 (05:51→11:01)
[2019-02-21] MEDS: Sertraline 50 MG Tab PO SCH (09:01)
[2019-02-21] MEDS: busPIRone 5 MG Tab PO SCH (09:01)
[2019-02-21] MEDS: TESTOSTERONE 1.62% TOP SCH (09:02)
--- NOTE | 2019-02-21 10:52 | PCM.DCSUM1 ---
Discharge Summary - Hospital Course Brief History: 48-year-old male with history of factor V Leiden deficiency and multiple abdominal surgeries who presented with fever and abdominal pain. Workup in the emergency room was suggestive of sepsis as a result of cellulitis of the abdominal wall. He was admitted for further management. Diagnosis: Stroke: No - Discharge Data Discharge Date: 02/21/19 Discharge Disposition: Home, Self-Care 01 Condition: Fair - Discharge Diagnosis/Problem(s) (1) Cellulitis of abdominal wall SNOMED Code(s): 65925533 ICD Code: L03.311 - CELLULITIS OF ABDOMINAL WALL Status: Acute (2) Sepsis SNOMED Code(s): 17569325 ICD Code: A41.9 - SEPSIS, UNSPECIFIED ORGANISM Status: Acute Qualifiers: Sepsis type: sepsis due to unspecified organism Qualified Code(s): A41.9 - Sepsis, unspecified organism (3) Factor V deficiency SNOMED Code(s): 9061822 ICD Code: D68.2 - HEREDITARY DEFICIENCY OF OTHER CLOTTING FACTORS Status: Acute - Patient Summary/Data Labs Pending at D/C: Final results of blood cultures which are negative at the time of discharge Hospital Course: Richard presented to the emergency room with upper abdominal pain as well as fever and nausea with vomiting. Workup in the emergency room was concerning for cellulitis involving the abdominal wall and sepsis. He received broad-spectrum antibiotics, IV fluids and was admitted to the hospital for further management. Initial lactic acid was elevated at 3.5 but this normalized fairly quickly with IV fluids. The day after admission the patient was transitioned from broad- spectrum antibiotics to cefazolin since he was thought to be low risk for resistant organisms. His nausea and vomiting resolved. Clinically he was feeling well. Unfortunately over the next 24 hours the cellulitis on the abdominal wall worsened very quickly. Patient had several areas of bogginess involving his previous surgical scars and there was concern for possible underlying abscess versus infected abdominal mesh. CT scan of the abdomen was obtained and did not show any obvious abscess or evidence for infection of the mesh. He was returned to broad-spectrum antibiotic coverage. Overnight following admission he had fairly dramatic improvement in the erythema and induration involving the abdominal wall. He has not had any fevers. His white blood cell count has normalized. Clinically he is feeling well and up and walking around. He has no pain at this time. We discussed transitioning to oral antibiotics prior to discharge to ensure that are antibiotic plan would continue to work. He has urgent family issues that need to be attended to with an ill father. We did discharge him with Augmentin and doxycycline. He will be following up in the near future to ensure that he continues to do better. Cultures have been negative throughout the hospital stay and at the time of discharge. - Patient Instructions Diet: Regular Diet as Tolerated Activity: As Tolerated Driving: May Drive Today Showering/Bathing: May Shower Notify Provider of: Fever, Increased Pain Other/Special Instructions: 1. You were in the hospital for management of cellulitis involving your abdominal wall. The infection was complicated by sepsis syndrome. Your condition is improving with antibiotic therapy. We did not determine a causative bacteria. I recommend ongoing antibiotic therapy with both Augmentin and Doxycycline. You should take one tablet of each medication as soon as you order picker/assembler the prescriptions today. Following this you should take one tablet of each of the medications twice daily starting at bedtime tonight. You will take the medications for a total of 7 days. I also strongly recommend that you eat yogurt such as Activia or a [place] yogurt twice daily while you are taking antibiotics. 2. Continue your other medications as previously prescribed. 3. Seek medical attention if you fever greater than 101, severe pain in your abdomen or if you develop persistent vomiting or severe diarrhea. - Discharge Plan *PRESCRIPTION DRUG MONITORING PROGRAM REVIEWED*: Not Applicable *COPY OF PRESCRIPTION DRUG MONITORING REPORT IN PATIENT HENRI: Not Applicable Prescriptions/Med Rec: Amoxicillin/Clavulanate K [Augmentin 875-125 MG] 1 tab PO BID #14 tablet Doxycycline Hyclate 100 mg PO BID #14 tablet Home Medications: Home Meds Albuterol [Proventil Neb Soln] 2.5 dose INH Q4HR PRN 07/31/16 [History] Diphenoxylate HCl/Atropine [Diphenoxylate-Atrop 2.5-0.025] 1 each PO Q8H PRN 03/09 [History] Enalapril [Vasotec] 5 mg PO DAILY 07/31/16 [History] Ondansetron [Zofran] 4 mg PO Q8H PRN 07/31/16 [History] Warfarin [Coumadin] 8 mg PO DAILY 07/31/16 [History] busPIRone [Buspar] 5 mg PO DAILY 07/31/16 [History] Dicyclomine HCl [Bentyl] 10 mg PO TID PRN 02/19/19 [History] Ranitidine HCl [Ranitidine] 150 mg PO BID 02/19/19 [History] Sertraline HCl 50 mg PO DAILY 02/19/19 [History] Testosterone 2.5 gm TOP DAILY 02/19/19 [History] Amoxicillin/Clavulanate K [Augmentin 875-125 MG] 1 tab PO BID #14 tablet [Rx] Doxycycline Hyclate 100 mg PO BID #14 tablet 02/21/19 [Rx] Oxygen Therapy Mode: Room Air Patient Handouts: Amoxicillin; Clavulanic Acid tablets, Cellulitis, Adult, Doxycycline tablets or capsules Referrals: PCP,None [Primary Care Provider] - (f/u with your primary care if symptoms do not continue to get better or if they get worse) - Discharge Summary/Plan Comment DC Time >30 min.: No - Patient Data Vitals - Most Recent: Last Vital Signs Temp 36.1 C 02/21/19 07:00 Pulse 71 02/21/19 07:00 Resp 18 02/21/19 07:00 BP 119/59 L 02/21/19 07:00 Pulse Ox 94 L 02/21/19 07:00 Weight - Most Recent: 129.727 kg I&O - Last 24 hours: Intake & Output 02/20/19 02/21/19 02/21/19 22:59 06:59 14:59 Intake Total 1970 1141 420 Balance 1970 1141 420 Lab Results - Last 24 hrs: Laboratory Results - last 24 hr 02/21/19 02/21/19 02/21/19 Range/Units 05:38 05:38 05:38 WBC 6.5 (4.5-11.0) K/uL RBC 4.69 (4.30-5.90) M/uL Hgb 14.1 (12.0-15.0) g/dL Hct 43.4 (40.0-54.0) % MCV 93 (80-98) fL MCH 30 (27-31) pg MCHC 33 (32-36) % Plt Count 162 (150-400) K/uL PT 19.2 H (9.5-12.0) sec INR 1.84 H (0.80-1.20) Sodium 141 (140-148) mmol/L Potassium 3.8 (3.6-5.2) mmol/L Chloride 105 (100-108) mmol/L Carbon Dioxide 28 (21-32) mmol/L Anion Gap 8.2 (5.0-14.0) mmol/L BUN 8 (7-18) mg/dL Creatinine 0.9 (0.8-1.3) mg/dL Est Cr Clr Drug Dosing 111.67 mL/min Estimated GFR (MDRD) > 60 (>60) Glucose 82 (74-106) mg/dL Calcium 8.9 (8.5-10.1) mg/dL SENDY Results - Last 24 hrs: Microbiology 02/18/19 22:55 Aerobic Blood Culture - Preliminary Blood - Arm, Right NO GROWTH AFTER 2 DAYS Anaerobic Blood Culture - Preliminary NO GROWTH AFTER 2 DAYS 02/18/19 23:00 Aerobic Blood Culture - Preliminary Blood - Arm, Right NO GROWTH AFTER 2 DAYS Anaerobic Blood Culture - Preliminary NO GROWTH AFTER 2 DAYS Med Orders - Current: Current Medications Acetaminophen (Tylenol) 650 mg PO Q6H PRN PRN Reason: Fever Hydrocodone Bitart/Acetaminophen ([place] 325-5 Mg) 1 tab PO Q4H PRN PRN Reason: Pain (moderate 4-6) Last Admin: 02/20/19 03:33 Dose: 1 tab Albuterol (Proventil Neb Soln) 2.5 mg NEB Q4H PRN PRN Reason: Shortness Of Breath/wheezing Buspirone HCl (Buspar) 5 mg PO DAILY [facility] Last Admin: 02/21/19 09:01 Dose: 5 mg Dicyclomine HCl (Bentyl) 10 mg PO TID PRN PRN Reason: IRRITABLE BOWEL Diphenhydramine HCl (Benadryl) 50 mg PO Q4H PRN PRN Reason: Itching Last Admin: 02/21/19 05:51 Dose: 50 mg Sodium Chloride (Normal Saline) 1,000 mls @ 25 mls/hr IV ASDIRECTED [facility] Last Admin: 02/20/19 12:22 Dose: 25 mls/hr Vancomycin HCl 1.75 gm/ Sodium (Chloride) 250 mls @ 167 mls/hr IV Q12H [facility] Last Admin: 02/20/19 22:41 Dose: 167 mls/hr Piperacillin/Tazobactam/ (Dextrose 3.375 gm/ Premix) 50 mls @ 100 mls/hr IV Q6H [facility] Last Admin: 02/21/19 09:02 Dose: 100 mls/hr Sodium Chloride (Normal Saline) 1,000 mls @ 100 mls/hr IV ASDIRECTED [facility] Last Admin: 02/20/19 21:19 Dose: 100 mls/hr Ondansetron HCl (Zofran) 4 mg IV Q4H PRN PRN Reason: Nausea/Vomiting Testosterone 1.62% (Gel (Ptom)) 0 each TOP DAILY [facility] Last Admin: 02/21/19 09:02 Dose: 1 each Ranitidine HCl (Zantac) 150 mg PO BID [facility] Last Admin: 02/21/19 09:01 Dose: 150 mg Senna/Docusate Sodium (Senna Plus) 1 tab PO BID PRN PRN Reason: Constipation Sertraline HCl (Zoloft) 50 mg PO DAILY [facility] Last Admin: 02/21/19 09:01 Dose: 50 mg Sodium Chloride (Saline Flush) 10 ml FLUSH ASDIRECTED PRN PRN Reason: Keep Vein Open Last Admin: 02/18/19 23:06 Dose: 10 ml Warfarin Sodium (Coumadin) 5 mg PO DAILY@1300 [facility] Last Admin: 02/19/19 13:46 Dose: 5 mg Warfarin Sodium (Coumadin) 3 mg PO DAILY@1300 [facility] Last Admin: 02/19/19 13:46 Dose: 3 mg Discontinued Medications Acetaminophen (Tylenol Extra Strength) 1,000 mg PO ONETIME ONE Stop: 02/18/19 22:47 Last Admin: 02/18/19 22:56 Dose: 1,000 mg Aspirin (Aspirin) 324 mg PO ONETIME ONE Stop: 02/18/19 22:41 Last Admin: 02/18/19 22:55 Dose: 324 mg Lactated Ringer's (Ringers, Lactated) 1,000 mls @ 1,000 mls/hr IV BOLUS ONE Stop: 02/18/19 23:44 Last Admin: 02/18/19 23:06 Dose: 1,000 mls/hr Lactated Ringer's (Ringers, Lactated) 1,000 mls @ 1,000 mls/hr IV BOLUS ONE Stop: 02/19/19 00:41 Last Admin: 02/19/19 00:09 Dose: 1,000 mls/hr Vancomycin HCl 1.25 gm/ Sodium (Chloride) 250 mls @ 150 mls/hr IV NOW STA Stop: 02/19/19 01:27 Last Admin: 02/19/19 00:10 Dose: 150 mls/hr Sodium Chloride (Normal Saline) 1,000 mls @ 175 mls/hr IV ASDIRECTED [facility] Last Admin: 02/19/19 05:53 Dose: 175 mls/hr Piperacillin Sod/Tazobactam (Sod 3.375 gm/ Sodium Chloride) 50 mls @ 100 mls/ hr IV Q6H [facility] Last Admin: 02/19/19 07:56 Dose: Not Given Vancomycin HCl 1.5 gm/ Sodium (Chloride) 250 mls @ 150 mls/hr IV Q12H [facility] Last Admin: 02/19/19 01:36 Dose: Not Given Piperacillin/Tazobactam/ (Dextrose 3.375 gm/ Premix) 50 mls @ 100 mls/hr IV Q6H [facility] Last Admin: 02/19/19 08:47 Dose: 100 mls/hr Vancomycin HCl 1.75 gm/ Sodium (Chloride) 250 mls @ 150 mls/hr IV Q12H [facility] Cefazolin Sodium 2 gm/ Sodium (Chloride) 50 mls @ 100 mls/hr IV Q8H [facility] Last Admin: 02/20/19 05:25 Dose: 100 mls/hr Sodium Chloride (Normal Saline) 80 mls @ 3 mls/sec IV ASDIRECTED [facility] Stop: 02/20/19 10:16 Last Admin: 02/20/19 10:48 Dose: 3 mls/sec Iopamidol (Isovue-300 (61%)) 150 ml IV ONETIME ONE Stop: 02/20/19 10:11 Last Admin: 02/20/19 10:48 Dose: 500 ml Non-Formulary Medication (Lansoprazole [Prevacid]) 30 mg PO DAILY [facility] Last Admin: 02/19/19 15:43 Dose: Not Given Sodium Chloride (Saline Flush) 10 ml FLUSH ONETIME ONE Stop: 02/20/19 10:11 Last Admin: 02/20/19 10:48 Dose: 10 ml Warfarin Sodium (Coumadin) 5 mg PO ONETIME ONE Stop: 02/19/19 01:35 Last Admin: 02/19/19 02:04 Dose: 5 mg Warfarin Sodium (Coumadin) 3 mg PO NOW ONE Stop: 02/19/19 02:01 Last Admin: 02/19/19 02:05 Dose: 3 mg - Exam Quality Assessment: Denies: Supplemental Oxygen General: Reports: Alert, Oriented, Cooperative, No Acute Distress Lungs: Reports: Normal Respiratory Effort GI/Abdominal Exam: Soft, No Distention Skin: Reports: Rash (Erythema involving a large portion of the mid abdomen. The erythema has decreased compared to yesterday. The erythema does involve the midline scar but swelling has decreased today. Erythema is now well within the marked boundaries.) Psy/Mental Status: Reports: Alert, Normal Affect
[2019-02-21 11:05] VITALS: BP 147/86; PULSE 78
== END 2019-02-21 12:45 | disposition home or self-care (01) | DRG 720 ==
LOC: JP.ED 22:33 → JP.MS 02-19 00:29 → OBSVTOIN 02-20 10:00
PROVIDERS: ADMIT Family Medicine; ATTEND Internal Medicine
DX: A41.9 Sepsis, unspecified organism (principal); L03.311 Cellulitis of abdominal wall; I10 Essential (primary) hypertension; J45.909 Unspecified asthma, uncomplicated; D68.51 Activated protein C resistance; H54.7 Unspecified visual loss; E29.1 Testicular hypofunction; G89.29 Other chronic pain; R10.9 Unspecified abdominal pain; Z88.8 Allergy status to other drugs, medicaments and biological substances; Z91.013 Allergy to seafood; Z79.01 Long term (current) use of anticoagulants; Z79.899 Other long term (current) drug therapy
CPT/HCPCS: 36415; 71045; 74177; 80048; 81001; 83605; 84484; 85025; 85027; 85610; 87040; 93005; 96361; 96365; 96366; 96367; 96374; 99285-25; A9270-GY; G0378; J0690; J2543; J3370; J7030; J7050; J7120; Q9967

== ENCOUNTER 2021-01-27 23:49 | Emergency (ER) | payer BC, MEDICAID ==
--- NOTE | 2021-01-28 00:05 | EDM.PDOC ---
ED HPI GENERAL MEDICAL PROBLEM - General Chief Complaint: Chest Pain Stated Complaint: [facility] Time Seen by Provider: 01/27/21 23:55 Source of Information: Reports: Patient, EMS History Limitations: Reports: No Limitations - History of Present Illness INITIAL COMMENTS - FREE TEXT/NARRATIVE: Richard is a 50-year-old male presenting to the ED via [facility] for evaluation of chest pain. He is at onset of symptoms for about the last 5 hours. Upon contact with EMS, the patient had an IV established. They did a twelve-lead EKG which did not show any significant ST elevation or depression. The patient received aspirin 324 mg chewed and 2 nitro sprays bring in his pain from a 7 out of 10 down to a 2 out of 10. Patient was loaded and transported to the hospital. He denies any previous episodes of heart disease. He denies any fever, chills, sore throat, or cough. His chest pain was retrosternal and burning sensation and associated with lightheadedness and some diaphoresis. He denies any back pain, abdominal pain, vomiting or diarrhea. He has had no urinary symptoms. He does have a history for gastroesophageal reflux disease for which she is prescribed Protonix but only takes it as needed. chest pain Pain Score (Numeric/FACES): 0 - Related Data Allergies Allergy/AdvReac Type Severity Reaction Status Date / Time pantoprazole [From Protonix] Allergy Nausea and Verified 01/28/21 00:05 Vomiting Sea Food Allergy Severe Anaphylactic Uncoded 01/28/21 00:05 Shock Home Meds: Home Meds Albuterol [Proventil Neb Soln] 2.5 dose INH Q4HR PRN 07/31/16 [History] Enalapril [Vasotec] 5 mg PO BEDTIME 07/31/16 [History] Ondansetron [Zofran] 4 mg PO Q8H PRN 07/31/16 [History] busPIRone [Buspar] 5 mg PO BEDTIME 07/31/16 [History] Dicyclomine HCl [Bentyl] 10 mg PO TID PRN 02/19/19 [History] DULoxetine [Cymbalta] 60 mg PO BEDTIME 01/28/21 [History] Doxepin [SINEquan] 25 mg PO BEDTIME 01/28/21 [History] Famotidine [Pepcid] 20 mg PO BEDTIME 01/28/21 [History] Gabapentin [Neurontin] 600 mg PO BEDTIME 01/28/21 [History] Rivaroxaban [Xarelto] 10 mg PO DAILY 01/28/21 [History] Past Medical History HEENT History: Reports: Hard of Hearing, Impaired Vision Cardiovascular History: Reports: Hypertension Respiratory History: Reports: Asthma, Other (See Below) Other Respiratory History: mild asthma Gastrointestinal History: Reports: GI Bleed Musculoskeletal History: Reports: Fracture, Other (See Below) Other Musculoskeletal History: ankle Psychiatric History: Reports: Anxiety, Depression Hematologic History: Reports: Anticoagulation Therapy, Blood Transfusion(s), Other (See Below) Other Hematologic History: Factor Five liden - Infectious Disease History Infectious Disease History: Reports: Chicken Pox - Past Surgical History GI Surgical History: Reports: Colostomy, Other (See Below) Social & Family History - Family History Family Medical History: No Pertinent Family History - Caffeine Use Caffeine Use: Reports: Soda ED ROS GENERAL - Review of Systems Review Of Systems: See Below Constitutional: Reports: No Symptoms HEENT: Reports: No Symptoms Respiratory: Reports: Shortness of Breath Cardiovascular: Reports: Chest Pain GI/Abdominal: Reports: No Symptoms : Reports: No Symptoms Musculoskeletal: Reports: No Symptoms Skin: Reports: No Symptoms Neurological: Reports: Headache (Secondary to nitroglycerin) Psychiatric: Reports: No Symptoms Hematologic/Lymphatic: Reports: No Symptoms Immunologic: Reports: No Symptoms ED EXAM, GENERAL - Physical Exam Exam: See Below Exam Limited By: No Limitations General Appearance: Alert, Anxious, Mild Distress Eye Exam: Bilateral Eye: EOMI, PERRL Throat/Mouth: Normal Inspection, Normal Oropharynx, Normal Voice, No Airway Compromise Head: Atraumatic, Normocephalic Neck: Normal Inspection, Supple, Non-Tender, Full Range of Motion. No: Lymphadenopathy (R), Lymphadenopathy (L) Respiratory/Chest: No Respiratory Distress, Lungs Clear, Normal Breath Sounds Cardiovascular: Normal Peripheral Pulses, Regular Rate, Rhythm, No Murmur Peripheral Pulses: 2+: Radial (L), Radial (R), Posterior Tibial (L), Posterior Tibial (R) GI/Abdominal: Normal Bowel Sounds, Soft, Non-Tender Back Exam: Normal Inspection Extremities: Normal Inspection, Normal Range of Motion, No Pedal Edema, Normal Capillary Refill Neurological: Alert, Oriented, Normal Cognition, No Motor/Sensory Deficits Psychiatric: Normal Affect Skin Exam: Warm, Dry Lymphatic: No Adenopathy #1 Interpretation EKG Date: 01/27/21 Time: 23:54 Rhythm: NSR Rate (Beats/Min): 88 P-Wave: Present QRS: Other (Left posterior fascicular block) ST-T: Other (ST elevation in lead II and aVF likely secondary to early repolarization.) QT: Normal Comparison: Change From Previous EKG (Sinus tachycardia has replaced by normal sinus rhythm when compared to 02/18/2019 EKG.) Course - Vital Signs Last Recorded V/S: Last Vital Signs Temp 36.8 C 01/28/21 00:06 Pulse 83 01/28/21 00:06 Resp 10 L 01/28/21 00:06 BP 130/74 01/28/21 00:06 Pulse Ox 98 01/28/21 00:06 - Orders/Labs/Meds Orders: Active Orders 24 hr Category Date Time Status EKG Documentation Completion [RC] ASDIRECTED Care 01/27/21 23:56 Active Chest 1V Frontal [CR] Stat Exams 01/28/21 01:06 Ordered EKG 12 Lead [EK] Routine Ther 01/27/21 23:55 Ordered Labs: Laboratory Tests 01/28/21 01/28/21 01/28/21 Range/Units 00:07 00:07 00:07 WBC 8.9 (4.5-11.0) K/uL RBC 4.36 (4.30-5.90) M/uL Hgb 14.3 (12.0-15.0) g/dL Hct 41.9 (40.0-54.0) % MCV 96 (80-98) fL MCH 33 H (27-31) pg MCHC 34 (32-36) % Plt Count 270 (150-400) K/uL Neut % (Auto) 76.8 H (36-66) % Lymph % (Auto) 14.7 L (24-44) % [place] % (Auto) 7.3 H (2-6) % Eos % (Auto) 0.9 L (2-4) % Baso % (Auto) 0.3 (0-1) % PT 10.6 (9.5-12.0) sec INR 0.97 (0.80-1.20) APTT 26.9 L (27.0-36.0) sec Sodium 143 (140-148) mmol/L Potassium 3.6 (3.6-5.2) mmol/L Chloride 106 (100-108) mmol/L Carbon Dioxide 27 (21-32) mmol/L Anion Gap 10.2 (5.0-14.0) mmol/L BUN 11 (7-18) mg/dL Creatinine 1.0 (0.8-1.3) mg/dL Est Cr Clr Drug Dosing 95.92 mL/min Estimated GFR (MDRD) > 60 (>60) Glucose 94 (74-106) mg/dL Calcium 9.1 (8.5-10.1) mg/dL Total Bilirubin 0.6 (0.2-1.0) mg/dL AST 33 (15-37) U/L ALT 53 (12-78) U/L Alkaline Phosphatase 87 (46-116) U/L Troponin I < 0.017 (0.000-0.056) ng/mL C-Reactive Protein 0.41 H (0.0-0.3) mg/dL Total Protein 5.9 L (6.4-8.2) g/dL Albumin 2.9 L (3.4-5.0) g/dL Globulin 3.0 (2.3-3.5) g/dL Albumin/Globulin Ratio 1.0 L (1.2-2.2) - Radiology Interpretation Free Text/Narrative:: Reviewed the one-view portable chest x-ray showing normal normal cardiopulmonary anatomy without evidence of acute infiltrates, edema, or cardiomegaly. - Re-Assessments/Exams Free Text/Narrative Re-Assessment/Exam: 01/28/21 01:10 I reviewed the patient's labs showing a normal CBC, comprehensive metabolic panel, troponin I, PT and PTT. The patient has mild elevation of his C-reactive protein at 0.41. His EKG shows early repolarization abnormality but otherwise is unremarkable. He does have a left posterior fascicular block that was seen on previous EKG. His chest x-ray was unremarkable for any significant findings. I think a likely cause for his symptoms tonight where his esophageal reflux causing acute esophagitis. This would respond to the nitro spray. We discussed taking the Protonix on a more scheduled basis rather than as needed. As it has been more than 5 hours since the onset of his symptoms and the patient has a negative troponin, I think it is unlikely that this is an acute coronary syndrome. 01/28/21 01:20 the patient's chest x-ray was negative for any acute findings. Again this is likely is gastroesophageal reflux disease causing acute esophagitis. He recently stopped his Prilosec and went to Pepcid. We will try to remember to take the Pepcid twice a day. He will follow up with his primary care provider to discuss the gastroesophageal reflux disease. If he has return of symptoms I encouraged him to come back for reevaluation. At this time he suitable for discharge home in satisfactory condition. Departure - Departure Time of Disposition: :31 Disposition: Home, Self-Care 01 Clinical Impression: Gastroesophageal reflux disease with esophagitis without hemorrhage Chest pain Qualifiers: Chest pain type: unspecified Qualified Code(s): R07.9 - Chest pain, unspecified Instructions: Gastroesophageal Reflux Disease, Adult, [id number], Nonspecific Chest Pain, Adult Referrals: Regina [facility] COORDINATOR [Primary Care Provider] - Forms: ED Department Discharge Care Plan Goals: I would encourage you to take your Pepcid twice daily. Follow-up with your primary care provider to discuss alternative treatments if the Pepcid is not working. Return to the ED if you have return of symptoms for reevaluation. Sepsis Event Note (ED) - Focused Exam Vital Signs: Vital Signs Temp Pulse Resp BP Pulse Ox 01/28/21 00:06 36.8 C 83 10 L 130/74 98 - Problem List & Annotations (1) Chest pain SNOMED Code(s): 60191515 Code(s): R07.9 - CHEST PAIN, UNSPECIFIED Status: Acute Priority: High Current Visit: Yes Qualifiers: Chest pain type: unspecified Qualified Code(s): R07.9 - Chest pain, unspecified (2) Gastroesophageal reflux disease with esophagitis without hemorrhage SNOMED Code(s): 044348253 Code(s): K21.00 - GASTRO-ESOPHAGEAL REFLUX DIS WITH ESOPHAGITIS, WITHOUT BLEED Status: Acute Priority: High Current Visit: Yes - Problem List Review Problem List Initiated/Reviewed/Updated: Yes - My Orders Last 24 Hours: My Active Orders 01/27/21 23:55 EKG 12 Lead [EK] Routine 01/27/21 23:56 EKG Documentation Completion [RC] ASDIRECTED 01/28/21 01:06 Chest 1V Frontal [CR] Stat - Assessment/Plan Last 24 Hours: My Active Orders 01/27/21 23:55 EKG 12 Lead [EK] Routine 01/27/21 23:56 EKG Documentation Completion [RC] ASDIRECTED 01/28/21 01:06 Chest 1V Frontal [CR] Stat
[2021-01-28 00:09] VITALS: BP 130/74; PULSE 83
--- NOTE | 2021-01-28 09:28 | CR ---
CHEST: Portable 01/28/2021 at 1:19 AM CLINICAL HISTORY:Chest pain COMPARISON:2019 FINDINGS: The heart size, pulmonary vascularity and hilar structures are normal. No infiltrate effusion or pneumothorax is seen. IMPRESSION: No acute cardiopulmonary process.
== END 2021-01-28 01:44 | disposition home or self-care (01) ==
LOC: JP.ED 23:49
DX: K21.00 Gastro-esophageal reflux disease with esophagitis, without bleeding (principal); I44.5 Left posterior fascicular block; I10 Essential (primary) hypertension; J45.909 Unspecified asthma, uncomplicated; Z88.8 Allergy status to other drugs, medicaments and biological substances; Z91.013 Allergy to seafood; Z79.01 Long term (current) use of anticoagulants; Z79.899 Other long term (current) drug therapy
CPT/HCPCS: 36415; 71045; 71045-26; 80053; 84484; 85025; 85610; 85730; 86140; 93005; 99285-25